=== PATIENT | male | born 1955 | race Caucasian/White ===

== ENCOUNTER 2016-11-10 18:01 | Emergency (ER) | payer BC ==
[~2016-11-10 18:01] MED LIST: COZ25 PO; D100 PO; PRILOSEC10 MG PO; REST15 PO
== END 2016-11-10 19:12 | disposition home or self-care (01) ==
LOC: ER 18:01
DX: L50.9 Urticaria, unspecified (principal); I10 Essential (primary) hypertension; T45.0X5A Adverse effect of antiallergic and antiemetic drugs, initial encounter; Z88.2 Allergy status to sulfonamides
CPT/HCPCS: 96374; 96375; 99283; J2920